=== PATIENT | male | born 1955 | race Caucasian/White ===

== ENCOUNTER 2021-07-30 12:00 | Emergency (ER) | payer MEDICARE, SELFPAY ==
[2021-07-30 12:09] VITALS: BP 124/94; PULSE 101; RESP 18; TEMP 36.8; O2SAT 98
--- NOTE | 2021-07-30 12:23 | ED.DENTAL ---
HPI - Dental/Oral General Chief complaint: Dental/Oral Stated complaint: jaw pain Time Seen by Provider: 07/30/21 12:22 Source: patient Mode of arrival: ambulatory Limitations: no limitations History of Present Illness HPI Narrative: The patient is a 66-year-old male with a history of gout presenting to the emergency department for evaluation of right upper jaw pain. Patient states that he had a wisdom tooth removed on July 26, with resulting pain Thursday. Patient reports dull, aching pain in the right lower jaw without significant neck pain. He does report soreness with swallowing. He has been able to swallow. He reports subjective fever and chills, nausea without vomiting. He denies any difficulty opening his mouth. He reports pain with swallowing but otherwise is able to swallow normally. He is reports decreased oral intake during this time. This is secondary to pain. He denies any chest or abdominal pain. He denies any neck rigidity. He does report his right lower jaw seems somewhat swollen but denies any redness. Denies vision changes, headache, denies significant neck pain. Patient has been ambulatory, denies any focal weakness, numbness, recent fall or injury. Patient states that his took his temperature over the weekend and he was afebrile. He has been taking 2 aspirin with some improvement in his symptoms, denies use of other pain medication. Patient was seen at his primary care physician's office today with concern for abscessed tooth and was referred to his dentist who was unable to see him until . Thus, primary care physician's office advised him to come to this emergency department for evaluation. Patient denies any shortness of breath or difficulty breathing. Related Data Allergies Allergy/AdvReac Type Severity Reaction Status Date / Time No Known Allergies Allergy Verified 07/30/21 10:33 Review of Systems Review of Systems: CONSTITUTIONAL: Reports subjective fever and chills EYES: Denies visual changes, redness, or discharge. ENT: Denies rhinorrhea, congestion, reports pain with swallowing, reports right-sided lower jaw pain CARDIOVASCULAR: Denies chest pain, palpitations, or edema. RESPIRATORY: Denies cough or dyspnea. GASTROINTESTINAL: Denies abdominal pain, reports nausea GENITOURINARY: Denies dysuria or hematuria. SKIN: Denies rash or itching. MUSCULOSKELETAL: Denies back pain, joint pain, or myalgia. NEUROLOGIC: Denies headache, numbness, or weakness. [facility] Past Medical History Medical History (Updated 07/30/21 @ 15:07 by Zamzam Cloud MD) BMI 27.0-27.9,adult BMI 35.0-35.9,adult Elevated blood pressure reading without diagnosis of hypertension Gout Hearing loss Screening for diabetes mellitus Screening for lipid disorders Tinea Surgical History Surgical History H/O wisdom tooth extraction Family History Family History Mother Carcinoma of colon Father No problems noted. Mother Lung cancer Sibling No problems noted. 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 EYES: PERRLA and EOMI. ENT: Nares clear, no rhinorrhea or epistaxis. Mucous membranes moist. Patient with mild right lower mandibular swelling. No fluctuant abscesses appreciated. There is no erythema or significant facial induration. There is no periorbital involvement. The uvula is midline without edema. There is no trismus. Patient with evidence of removed posterior molar #32, there is
[2021-07-30 13:03] LABS: Basophils Absolute Auto 0.1 K/mm3 (0.0-0.1); Basophils Percent Auto 0.4 % (0.2-1.2); Eosinophils Percent Auto 0.2 % (0-4.4); Hematocrit 55.5 % (42.0-52.0); Hemoglobin 18.5 g/dL (14.0-18.0); Immature Granulocyte Absolute 0.04 K/mm3 (0.00-0.031); Immature Granulocyte Percent A 0.3 % (0-0.5); Lymphocytes Absolute Auto 1.77 K/mm3 (0.9-3.2); Lymphocytes Percent Auto 14.1 % (18.3-44.2); Mean Corpuscular HGB Conc 33.3 g/dl (32-36); Mean Corpuscular Hemoglobin 30.2 pg (26-34); Mean Corpuscular Volume 90.5 fl (80-100); Mean Platelet Volume 10.5 fl (7.4-10.4); Monocytes Absolute Auto 1.2 K/mm3 (0.1-0.6); Monocytes Percent Auto 9.7 % (2.6-8.5); Neutrophils Absolute Auto 9.4 K/mm3 (1.3-6.7); Neutrophils Percent Auto 75.3 % (45.5-73.1); Platelet Count Result 265 k/mm3 (150-375); Red Blood Count 6.13 M/mm3 (4.6-6.20); Red Cell Distribution Width 13.7 % (11.5-14.5); White Blood Count 12.5 K/mm3 (4.5-10.0)
[2021-07-30] MEDS: SODIUM CHLORIDE 0.9% IV 1,000 ML 999 ML IV CONT ×2 (13:22→14:29)
[2021-07-30] MEDS: AMOXICILLIN/CLAVULANATE K 875-125 MG TAB 1 TABLET PO (13:23)
[2021-07-30] MEDS: ONDANSETRON INJ 4 MG/2 ML VIAL IV PUSH (13:23)
[2021-07-30 13:31] LABS: Alanine Aminotransferase 36 U/L (4-50); Albumin Level 4.8 g/dL (3.5-5.1); Alkaline Phosphatase 115 U/L (38-126); Anion Gap 18 mmol/L (8-16); Aspartate Amino Transferase 43 U/L (17-59); Bilirubin,Total 1.4 mg/dL (0.2-1.3); Blood Urea Nitrogen 40 mg/dL (9-20); Calcium 9.7 mg/dL (8.4-10.2); Carbon Dioxide 16 mmol/L (22-30); Chloride 108 mmol/L (98-107); Estimated CRCL calculation 49 ml/min; Estimated Glomerular Filt Rate 47; Glucose 116 mg/dL (65-110); Potassium 4.3 mmol/L (3.4-5.0); Sodium 142 mmol/L (137-145)
== END 2021-07-30 15:21 | disposition home or self-care (01) ==
PROVIDERS: Emergency Provider Emergency Medicine; PCP Family Medicine
DX: M27.3 Alveolitis of jaws (principal); E86.0 Dehydration; N17.9 Acute kidney failure, unspecified; Z98.818 Other dental procedure status; M10.9 Gout, unspecified; Z77.22 Contact with and (suspected) exposure to environmental tobacco smoke (acute) (chronic)
CPT/HCPCS: 36415; 80053; 85025; 96361; 96374; 99284; A9270; J2405; J7030

== ENCOUNTER 2021-12-04 11:36 | Outpatient (CLI) | payer MEDICARE, SELFPAY ==
--- NOTE | 2021-12-04 11:48 | ECG_ITS ---
Measurements Intervals [place] Rate: 78 P: 56 VT: 146 QRS: 38 QRSD: 81 T: 63 QT: 354 QTc: 405 Interpretive Statements SINUS RHYTHM NONSPECIFIC ST ABNORMALITY BORDERLINE ECG NO PREVIOUS ECG AVAILABLE FOR COMPARISON Electronically Signed On 12-04-2021 16:11:20 CDT by Eber Mcmahon M.D.
== END 2021-12-04 11:37 | disposition home or self-care (01) ==
PROVIDERS: PCP Family Medicine; Visit Provider Physician Assistant Medical
DX: I10 Essential (primary) hypertension (principal)
CPT/HCPCS: 93005

== ENCOUNTER 2022-01-01 12:51 | Outpatient (CLI) | payer MEDICARE, SELFPAY ==
--- NOTE | ~2022-01-01 | US_ITS ---
EXAMINATION: US carotid duplex BI DATE: 01/01/2022 14:05 INDICATION: Carotid stenosis TECHNIQUE: Grayscale, color Doppler, and pulsed Doppler images of the cervical carotid arteries were obtained. The degree of vessel stenosis is placed in one of the following categories: normal, <50%, 5 0-69%, >=70% but less than near-occlusion, near-occlusion, or total occlusion. Note that percent sten osis relative to normal distal artery lumen diameter is indirectly measured from velocity measurement s as described by Jacek, et al. Radiology 2003; 229:340-346. Notes: Normal: Peak systolic velocity <125 centimeters/sec and no plaque <50%. Peak systolic velocity <125 ( EDV <40; ICA/CCA PSV ratio <2.0; used these factors only a tandem lesions or low cardiac output or co ntralateral disease) 50-69 %: PSV 125-230 (EDV 40-100; ratio 2-4) >= 70% but less than near occlusion: PSV greater than 230 (EDV > 100; ratio> 4.0) Near Occlusion: PSV that is variable; markedly narrowed lumen Occlusion: Absent flow on color/spectral Doppler and no lumen on tolentino scale. COMPARISON: None. FINDINGS: RIGHT: The right common carotid artery (CCA) peak systolic velocity (PSV) is 94 cm/s. The right internal car otid artery (ICA) PSV is 66 cm/s. The right ICA end-diastolic velocity (EDV) is 23 cm/s. The right IC A/CCA PSV ratio is 0.7. The external carotid artery (ECA) PSV is 98 cm/s. There is antegrade flow in the right vertebral artery. LEFT: The left CCA PSV is 111 cm/s. The left ICA PSV is 69 cm/s. The left ICA EDV is 26 cm/s. The left ICA/ CCA PSV ratio is 0.6. The ECA PSV is 113 cm/s. There is antegrade flow in the left vertebral artery. IMPRESSION: 1. Less than 50% stenosis in the right internal carotid artery by sonographic criteria. 2. Less than 50% stenosis in the left internal carotid artery by sonographic criteria. Reviewed, dictated and finalized at location A. IMPRESSION: 1. Less than 50% stenosis in the right internal carotid artery by sonographic demarcus rico. 2. Less than 50% stenosis in the left internal carotid artery by sonographic sohail foote.
== END 2022-01-01 12:52 | disposition home or self-care (01) ==
PROVIDERS: PCP Family Medicine; Visit Provider Physician Assistant Medical
DX: H47.011 Ischemic optic neuropathy, right eye (principal); R09.89 Other specified symptoms and signs involving the circulatory and respiratory systems; I10 Essential (primary) hypertension; I65.23 Occlusion and stenosis of bilateral carotid arteries
CPT/HCPCS: 93880

== ENCOUNTER 2022-04-25 12:23 | Outpatient (CLI) | payer MEDICARE, SELFPAY | END 2022-04-25 12:24 | disposition home or self-care (01) | LOC: ANHSURGERY 12:25 | PROVIDERS: PCP Family Medicine; Visit Provider Urology | DX: N21.0 Calculus in bladder (principal); Z01.818 Encounter for other preprocedural examination | CPT/HCPCS: 87077; 87086; 87186 ==

== ENCOUNTER 2022-04-29 00:42 | Day surgery (SDC) | payer MEDICARE, SELFPAY ==
[2022-04-24 13:25] VITALS: BMI 28.5
--- NOTE | 2022-04-24 13:33 | PC.NURSE ---
PRE-OP INSTRUCTIONS, PLEASE READ CAREFULLY Report to the Outpatient Waiting Room, entrance under the green pavilion located off [facility], at time _0815_ on date _04/29/22_. Planned Procedure Time: _1015_. Time changes happen often and if your time is changed the preop area will call you the afternoon before. - You and your visitor will be asked to self-screen and do not enter if you have any COVID symptoms. - Only one visitor is requested with a max of two and NO children visitors are allowed at this time. - The patient visitor may be requested to leave or wait in car when not with patient due to distancing restrictions. - A mask is optional within the hospital. Patients may have clear liquids (water, carbonated beverages, clear teas, apple juice) until 3 hours prior to surgery (0715 AM) with a maximum of 20 ounces. - No food from midnight until time of surgery Take the following medications with a SIP of water the morning of surgery: _NONE_ Medications to discontinue per physician _VITAMINS/SUPPLEMENTS 3 DAYS PRIOR TO SURGERY, Date to take last dose 04/25/22_ Please no make-up, nail spanish, hairspray, perfume, deodorant, or body powder the day of surgery. No jewelry (including any body piercings) or valuables the day of surgery, leave them at home. Please take a shower or bath the night before, or the morning of, surgery with an antibacterial soap. Wear comfortable, loose fitting clothing. - Jewelry must be removed prior to entering the operating room. Rings and piercings that are not removed may be cut off. - The hospital will not accept responsibility for valuables. - Please leave all valuables, including medications, at home the day of surgery. If you are going home after surgery, a licensed city driver must drive you home. - NO public transportation without another adult if you receive anesthesia. - We recommend that an adult stay with you for 24 hours following discharge. - We also recommend that you do not drive, make important decision, drink alcoholic beverages, or take any drugs that were not prescribed by your health care provider for at least 24 hours after your discharge time. Follow any additional instructions given to you from your surgeon. If you or anyone in your household have experienced Covid symptoms in the past week, please notify your surgeon or the nurse liaison at the phone number below for possible testing. Telephone instructions given to _PATIENTS SPOUSE (LUZ)_and asked if any additional questions and then verbalized understanding. Patient advised to call surgeon office or pre surgery nurse liaison [phone] if any additional questions.
[2022-04-29] VITALS (7 sets, daily range): BP systolic 107–126; BP diastolic 70–83; PULSE 72–108; RESP 10–20; TEMP 36.1–36.4; O2SAT 99–100
--- NOTE | 2022-04-29 08:44 | WPDANESEPPF ---
Anes - Initial Pre Proc Eval Procedure: Operation Date: 04/29/22 11:15 Proposed Procedures p Cystoscopy with Laser of Bladder Stones - bOed Lynch MD Date/Time: 04/29/22 08:44 Surgeon: Obed Lynch MD Pre Op Diagnosis: Bladder Stones Patient Data Age: 67 Gender: M Height: 1.83 m Weight: 95.45 kg Allergies Allergy/AdvReac Type Severity Reaction Status Date / Time No Known Allergies Allergy Verified 04/29/22 09:39 Home Medications Medication Instructions Recorded Confirmed Type allopurinol 300 mg tablet 300 mg PO BID #180 tabs 03/18/21 04/29/22 Rx lisinopril 10 mg tablet 10 mg PO DAILY #30 tabs 03/26/22 04/29/22 Rx finasteride 5 mg tablet 5 mg HS 04/24/22 04/29/22 History nystatin 100,000 unit/gram topical See Rx Instructions .Route 04/24/22 04/29/22 History powder .COMPLEX PRN Rash vitamin A-vitamin C-vit E-min 1 tablet PO DAILY 04/24/22 04/29/22 History tablet vitamin B complex 1 cap PO DAILY 04/24/22 04/29/22 History Patient hx anesthesia problems: none Family hx anesthesia problems: none Results Review: All pre-operative results and documents have been reviewed as part of the pre-operative evaluation. [facility] Past Medical History Medical History (Updated 04/29/22 @ 10:03 by Roshan Garcia DO) BMI 27.0-27.9,adult Elevated blood pressure reading without diagnosis of hypertension Gout Hearing loss Ischemic optic neuropathy of right eye Prediabetes Screening for diabetes mellitus Tinea Surgical History Surgical History H/O wisdom tooth extraction Family History Family History Mother Carcinoma of colon Father No problems noted. Mother Lung cancer Sibling No problems noted. Social History Social History Smoking status: Never smoker Second hand tobacco smoke exposure: No Alcohol intake: never Substance use: never Substance use type: does not use Living arrangements: with family Additional occupation/education comments: [employer] Gender identity (if verbalized by the patient): Male Spiritual care concerns: No Anes - Eval Final PreProcedure Day of Procedure 04/29/22 08:44 Patient weight: overweight Heart: regular rate and rhythm Lungs: clear to auscultation Airway: Mallampati scale class II and special considerations poor dentition Neurological: alert and oriented Last oral intake: >/= 8 hours ASA classification: III Emergent: no Anesthetic plan: proceed Anesthesia type and monitoring: general LMA and standard monitoring Results Review: All pre-operative results and documents have been reviewed as part of the pre-operative evaluation. Informed Consent: The patient's anesthetic plan and its attendant risks and benefits were discussed with the patient/family/POA. Questions were solicited and answers provided to the satisfaction of the patient/family/POA.
[2022-04-29] MEDS: LACTATED RINGERS 1,000 ML 30 ML IV CONT (09:53)
[2022-04-29] MEDS: AMPICILLIN 1 GM/NS 50 ML 1 GM/50 ML BAG IVPB (09:54)
--- NOTE | 2022-04-29 10:04 | SUR.PREOP ---
pt informed may be delay in procedure. dr balderas made aware of urine culture and antibiotic ordered and given.
--- NOTE | 2022-04-29 11:20 | WPDHPUPDATE1 ---
History and Physical Update Update Date/Time: 04/29/22 11:20 History and Physical has been reviewed, including an updated exam of the patient. There are NO changes in the patient's condition. Risks, benefits, and alternatives have been discussed and questions answered. Patient agrees to proceed with procedure. Proceed with cysto with laser bladder stone
[2022-04-29] MEDS: ceFAZolin 2 GM/D5W 50 ML 2 GM/50 ML BAG IVPB (11:38)
[2022-04-29] MEDS: LIDOCAINE HCL 2% GEL UROJET 10 ML PKG MUCOUS MEM (12:04)
--- NOTE | 2022-04-29 12:12 | W.PM.PROC2 ---
Procedure Note - Detailed Date of Procedure 04/29/22 Pre-op Diagnosis Bladder Stones Post-op Diagnosis Same Procedure Performed Sterling laser of bladder stone with cystoscopy Surgeon Obed Lynch MD Anesthesia General Description of Procedure Patient is taken to the operative suite correctly identified. Once anesthesia was obtained was placed in dorsal lithotomy position and prepped and draped usual sterile fashion. Twenty-two [place] scope inserted the bladder. Does have some lateral lobe hypertrophy. The bladder stone was visualized. No tumors noted. Using the larger fiber we used the Sterling laser to dust/fragment the stone. Those were retrieved and sent for analysis. There was good hemostasis at termination procedure. 2% viscous lidocaine was inserted in the urethra. Patient is taken recovery stable condition. Please send a copy this op note to my office Estimated Blood Loss 0 Drains No Packing No Pathology Yes Complications No immediate complications Condition Stable Disposition PACU
[2022-04-29] MEDS: oxyCODONE HCL (*CRX) 5 MG TAB IR PO (13:27)
== END 2022-04-29 14:00 | disposition home or self-care (01) ==
PROVIDERS: PCP Family Medicine; Visit Provider Urology
PROC: 0TCB8ZZ Extirpation of Matter from Bladder, Via Natural or Artificial Opening Endoscopic (ICD-10-PCS; CPT 52352; principal; 2022-04-29 11:15)
DX: N21.0 Calculus in bladder (principal); M10.9 Gout, unspecified
CPT/HCPCS: 52317; 82365; 87077; 87086; 87186; 88300; A9270; J0290; J0690; J2405; J2704; J3010; J7120